=== PATIENT | female | born 1990 | race Asian ===

== ENCOUNTER 2017-07-18 15:34 | Emergency (ER) | payer OTHER ==
[2017-07-18 16:50] VITALS: BP 117/86
[2017-07-18] MEDS ORDERED: DEXAMETHASONE 10 MG/ML VIAL PO STA (17:11)
--- NOTE | 2017-07-18 17:12 | ED Physician Documentation ---
History of Present Illness - Stated complaint Stated Complaint: FEMALE - Chief complaint Chief Complaint: General - History obtained from History obtained from: Patient - History of Present Illness Timing: How many weeks ago (2) - Additonal information Additional information: 26-year-old female has been feeling body aches she is also has some pelvic cramping and she is also developed a cough and congestion feels feverish and she is concerned about the possibility of retained tampon. She does not have a foul smell and does not have discharge. Review of Systems Constitutional: reports: Chills, Myalgias Eyes: denies: Decreased vision Ears: denies: Ear pain Nose: reports: Rhinorrhea / runny nose, Congestion Throat: reports: Sore throat Cardiac: denies: Chest pain / pressure, Palpitations Respiratory: reports: Cough. denies: Dyspnea GI: denies: Nausea, Vomiting : denies: Dysuria, Frequency PD PAST MEDICAL HISTORY - Present Medications Home Medications: Ambulatory Orders Medication Instructions Recorded Confirmed Azithromycin [Zithromax] 250 mg PO DAILY #6 tablet 07/18/17 - Allergies Allergies/Adverse Reactions: Allergies Allergy/AdvReac Type Severity Reaction Status Date / Time No Known Drug Allergies Allergy Verified 07/18/17 15:40 PD ED PE NORMAL - Vitals Vital signs reviewed: Yes (Normal) - General General: Alert and oriented X 3, No acute distress, Well developed/nourished - HEENT HEENT: Atraumatic, PERRL, EOMI, Other (There is marked inflammation of the right TM the left is clear the pharynx is with 2+ tonsils with exudate) - Neck Neck: Supple, no meningeal sign, No bony TTP - Cardiac Cardiac: RRR, No murmur - Respiratory Respiratory: No respiratory distress, Clear bilaterally - Abdomen Abdomen: Soft, Non tender - Female Female : Lease Administrator present (Lola), Other (There is no evidence of retained tampon. The vaginal vault is with milky white discharge that is thin and nonodorous. There is no cervicitis present) - Back Back: No CVA TTP, No spinal TTP - Derm Derm: Normal color, Warm and dry, No rash - Extremities Extremities: No deformity, No edema - Neuro Neuro: Alert and oriented X 3, No motor deficit, No sensory deficit, Normal speech Eye Opening: Spontaneous Motor: Obeys Commands Verbal: Oriented GCS Score: 15 - Psych Psych: Normal mood, Normal affect Results - Vitals Vitals: Vital Signs - 24 hr 07/18/17 07/18/17 15:36 16:49 Temperature 37.4 C Heart Rate 83 68 Respiratory 18 16 Rate Blood Pressure 122/79 117/86 H O2 Saturation 96 99 Oxygen O2 Source Room air PD MEDICAL DECISION MAKING - ED course Complexity details: reviewed results, re-evaluated patient, considered differential, d/w patient ED course: 26-year-old female who is concerned about the possibility of retained tampon does not have retained tampon. She does have body aches and pains and a cough and congestion and has otitis on examination. She is treated for this with dexamethasone and we will place her on some azithromycin. Departure - Departure Disposition: 01 Home, Self Care Clinical Impression: Otitis media Qualifiers: Otitis media type: suppurative Chronicity: acute Laterality: right Recurrence: not specified as recurrent Spontaneous tympanic membrane rupture: without spontaneous rupture Qualified Code(s): H66.001 - Acute suppurative otitis media without spontaneous rupture of ear drum, right ear Condition: Stable Instructions: ED Otitis Media Acute Adult Follow-Up: [facility] [Provider Group] Prescriptions: Azithromycin [Zithromax] 250 mg PO DAILY #6 tablet
== END 2017-07-18 18:14 | disposition home or self-care (01) ==
LOC: ED 15:34
DX: H66.001 Acute suppurative otitis media without spontaneous rupture of ear drum, right ear (principal); M79.1 Myalgia; R05 Cough
CPT/HCPCS: 99283

== ENCOUNTER 2017-08-05 16:26 | Outpatient (CLI) | payer OTHER ==
[2017-08-05 17:18] LABS: THYROID STIMULATING HORMONE 3.15 uIU/mL (0.34-5.60)
[2017-08-05 17:20] LABS: FREE T4 (FREE THYROXINE) 0.76 ng/dL (0.58-1.64)
== END 2017-08-05 16:27 | disposition home or self-care (01) ==
LOC: LAB 16:26
PROVIDERS: ATTEND Nurse Practitioner Obstetrics & Gynecology
DX: Z13.29 Encounter for screening for other suspected endocrine disorder (principal)
CPT/HCPCS: 36415; 84439; 84443; 84481

== ENCOUNTER 2018-09-28 10:19 | Emergency (ER) | payer OTHER ==
[2018-09-28] MEDS ORDERED: KETOROLAC 60 MG/2 ML VIAL IM STA (12:24)
--- NOTE | 2018-09-28 12:27 | ED Physician Documentation ---
PD HPI BACK PAIN - Stated complaint Stated Complaint: BACK PX - Chief complaint Chief Complaint: Back Pain - History obtained from History obtained from: Patient - History of Present Illness Timing - onset: Yesterday Timing - duration: Days (2) Timing - details: Abrupt onset, Gradual onset Pain level max: 8 Pain level now: 8 Location: Lower, Right, Left Quality: Pain, Spasm, Similar to prior episodes Associated symptoms: No: Fever, Weakness, Numbness, Incontinent of urine, Unable to urinate, Hematuria, Incontinent of stool Improves with: Rest Worsened by: Movement Contributing factors: Twisting (twisting when doing her hair) Similar symptoms before: Diagnosis (has had back problems in the past) Recently seen: Not recently seen Review of Systems Constitutional: denies: Fever, Chills Cardiac: denies: Chest pain / pressure Respiratory: denies: Cough GI: denies: Abdominal Pain, Nausea, Vomiting, Diarrhea : denies: Dysuria, Frequency, Hesitancy, Unable to Void, Incontinent, Now EGA Skin: denies: Rash Musculoskeletal: denies: Neck pain Neurologic: denies: Headache PD PAST MEDICAL HISTORY - Past Medical History Past Medical History: No - Past Surgical History Past Surgical History: No - Present Medications Home Medications: Ambulatory Orders Medication Instructions Recorded Confirmed Azithromycin [Zithromax] 250 mg PO DAILY #6 tablet 07/18/17 Cyclobenzaprine [Flexeril] 10 mg PO TID PRN #20 tablet 09/28/18 Meloxicam [Mobic] 15 mg PO DAILY PRN #20 tablet 09/28/18 - Allergies Allergies/Adverse Reactions: Allergies Allergy/AdvReac Type Severity Reaction Status Date / Time No Known Drug Allergies Allergy Verified 09/28/18 10:36 - Living Situation Living Arrangement: reports: At home - Family History Family history: reports: Non contributory PD ED PE NORMAL - Vitals Vital signs reviewed: Yes - General General: Alert and oriented X 3, No acute distress, Well developed/nourished - HEENT HEENT: PERRL, Moist mucous membranes - Neck Neck: Supple, no meningeal sign - Cardiac Cardiac: RRR, Strong equal pulses - Respiratory Respiratory: No respiratory distress, Clear bilaterally - Abdomen Abdomen: Soft, Non tender, Non distended - Back Back: No spinal TTP, Other (paraspinal spasm B low lumbar) - Derm Derm: Warm and dry - Extremities Extremities: Normal ROM s pain - Neuro Neuro: Alert and oriented X 3, No motor deficit, No sensory deficit, Other (Normal bilateral lower extremity patellar and ankle jerk reflexes. Normal great toe extension bilaterally. no saddle anesthesia) - Psych Psych: Normal mood, Normal affect Results - Vitals Vitals: Vital Signs - 24 hr 09/28/18 09/28/18 10:33 12:51 Temperature 36.5 C Heart Rate 66 79 Respiratory 14 18 Rate Blood Pressure 126/69 127/78 O2 Saturation 100 97 Oxygen O2 Source Room air - Labs Labs: Laboratory Tests 09/28/18 09/28/18 10:48 12:23 Urine Color Cancelled Urine Clarity Cancelled Urine pH Cancelled Ur Specific [place] Cancelled 1.010 Urine Protein Cancelled Urine Glucose (UA) Cancelled Urine Ketones Cancelled Urine Occult Blood Cancelled Urine Nitrite Cancelled Urine Bilirubin Cancelled Urine Urobilinogen Cancelled Ur Leukocyte Esterase Cancelled Urine RBC Cancelled Urine WBC Cancelled Urine WBC Clumps Cancelled Ur Epithelial Cells Cancelled Ur Squamous Epith Cells Cancelled Urine Crystals Cancelled Amorphous Sediment Cancelled Urine Bacteria Cancelled Urine Casts Cancelled Urine Starch Cancelled Urine Mucus Cancelled Urine Trichomonas Cancelled Urine Yeast Cancelled Urine Sperm Cancelled Ur Oval Fat Bodies Cancelled Ur Microscopic Review Cancelled Urine Culture Comments Cancelled Urine HCG, Qual Cancelled NEGATIVE PD MEDICAL DECISION MAKING - ED course Complexity details: reviewed results, re-evaluated patient, considered differential (No cauda equina, no spinal epidural abscess, no fracture, no aortic dissection or evidence of aneursym rupture), d/w patient ED course: Patient with a low back strain with spasm. Will place on muscle relaxants and meloxicam for home. Ambulating well. No neurological deficits. No cauda equina or epidural abscess. Patient counseled regarding signs and symptoms for which I believe and urgent re-evaluation would be necessary. Patient with good understanding of and agreement to plan and is comfortable going home at this time This document was made in part using voice recognition software. While efforts are made to proofread this document, sound alike and grammatical errors may occur. Departure - Departure Disposition: 01 Home, Self Care Clinical Impression: Low back strain Qualifiers: Encounter type: initial encounter Qualified Code(s): S39.012A - Strain of muscle, fascia and tendon of lower back, initial encounter Condition: Good Instructions: ED Sprain Strain Lumbar Follow-Up: Yaima Sharpe PA-C [Primary Care Provider] - Within 1 week Prescriptions: Cyclobenzaprine [Flexeril] 10 mg PO TID PRN #20 tablet PRN Reason: Spasms Meloxicam [Mobic] 15 mg PO DAILY PRN #20 tablet PRN Reason: pain Comments: Return if you worsen. Use the medications as needed for your back. do not drive or operate heavy machinery while on flexeril. Forms: Activity restrictions Discharge Date/Time: 09/28/18 12:51
[2018-09-28 12:32] LABS: HCG UR QUAL NEGATIVE
[2018-09-28 12:52] VITALS: BP 127/78
== END 2018-09-28 12:51 | disposition home or self-care (01) ==
LOC: ED 10:19
DX: S39.012A Strain of muscle, fascia and tendon of lower back, initial encounter (principal); X50.1XXA Overexertion from prolonged static or awkward postures, initial encounter; Y93.E8 Activity, other personal hygiene; M62.830 Muscle spasm of back
CPT/HCPCS: 81001; 81003; 81025; 87086; 96372; 99283

== ENCOUNTER 2019-05-19 14:24 | Outpatient (CLI) | payer OTHER ==
--- NOTE | 2019-05-20 04:05 | XRAY Report ---
Reason: SPRAIN OF LUMBAR SPINE Procedure Date: 05/19/2019 Accession Number: [id number] / [id number] Procedure: WCP - Lumbar Spine 2 View CPT Code: Final Report FULL RESULT: EXAM: LUMBOSACRAL SPINE RADIOGRAPHY EXAM DATE: 05/19/2019 02:24 PM. CLINICAL HISTORY: Fall, back pain COMPARISONS: None. TECHNIQUE: 2 views. FINDINGS: Alignment: Normal. No spondylolisthesis or scoliosis. Bones: Five [id number] lumbar vertebral bodies are present. No fractures or bone lesions. Disks: Mild L1-L2 disk height loss and a slight ptosis. No other significant disk level degenerative changes. Facets: No degenerative changes. Sacroiliac Joints: Unremarkable. Soft Tissues: Normal. The visualized bowel gas pattern is normal. IMPRESSION: Negative lumbar spine radiography. RADIA
== END 2019-05-19 23:59 | disposition home or self-care (01) ==
LOC: DI.WCP 14:24
PROVIDERS: ATTEND Family Medicine
DX: S33.5XXA Sprain of ligaments of lumbar spine, initial encounter (principal)
CPT/HCPCS: 72100

== ENCOUNTER 2020-05-26 08:00 | Outpatient (CLI) | payer OTHER ==
[2020-05-26 10:09] LABS: CHOL/HDL RATIO 4.6 (<4.4); CHOLESTEROL 214 mg/dL; HDL CHOLESTEROL 47 mg/dL; LDL CHOLESTEROL,CALCULATED 145 mg/dL; LDL/HDL RATIO 3.1 (<4.4); VLDL CHOLESTEROL 22 mg/dL
== END 2020-05-26 23:59 | disposition home or self-care (01) ==
LOC: LAB 08:00
PROVIDERS: ATTEND Advanced Practice Midwife
DX: Z00.00 Encounter for general adult medical examination without abnormal findings (principal)
CPT/HCPCS: 36415; 80061; 83721

== ENCOUNTER 2020-05-29 14:03 | Outpatient (CLI) | payer OTHER ==
--- NOTE | 2020-05-30 09:46 | Ultrasound Report ---
LIMITED ULTRASOUND OF RIGHT BREAST: 05/29/2020 CLINICAL: Palpable right breast lump. No prior exams were available for comparison. Real-time ultrasound of the right breast lower inner quadrant was performed on the area of interest. No discrete cystic or solid mass lesion identified in the area of palpable abnormality. IMPRESSION: NEGATIVE There is no sonographic evidence of malignancy. There is no abnormality seen in the right breast to correspond with the palpable abnormality in the l ower inner quadrant, however, clinical followup is recommended. This exam was interpreted at Station ID: [id number]. Electronically Signed By: Orlando Guillory M.D. ddp/:05/29/2020 15:15:48 Ultrasound BI-RADS: 1 Negative BI-RADS CATEGORY: (1) - 1 Unspecified - other recall n/a LATERALITY: (B)
== END 2020-05-29 14:04 | disposition home or self-care (01) ==
LOC: DI 14:03
PROVIDERS: ATTEND Advanced Practice Midwife
DX: N63.10 Unspecified lump in the right breast, unspecified quadrant (principal); Z80.3 Family history of malignant neoplasm of breast

== ENCOUNTER 2020-09-24 22:56 | Emergency (ER) | payer OTHER ==
[2020-09-24 23:19] LABS: BILIRUBIN,URINE NEGATIVE (NEGATIVE); GLUCOSE, URINE (UA) NEGATIVE (NEGATIVE); KETONES,URINE (UA) NEGATIVE (NEGATIVE); LEUKOCYTE ESTERASE, URINE NEGATIVE (NEGATIVE); NITRITE,URINE NEGATIVE (NEGATIVE); OCCULT BLOOD,URINE NEGATIVE (NEGATIVE); PH,URINE 6.5 PH (5.0-7.5); PROTEIN,URINE NEGATIVE (NEGATIVE); UROBILINOGEN,URINE 0.2 (NORMAL) E.U./dL (NORMAL)
[2020-09-24 23:20] LABS: CLARITY,URINE CLEAR (CLEAR)
[2020-09-24 23:25] LABS: HCG UR QUAL NEGATIVE
[2020-09-24 23:33] LABS: BASOPHILS # (AUTO) 0.1 10^3/uL (0.0-0.1); BASOPHILS % (AUTO) 0.7 %; EOSINOPHILS # (AUTO) 0.2 10^3/uL (0.0-0.7); EOSINOPHILS % (AUTO) 1.8 %; HCT - HEMATOCRIT 41.1 % (37.0-47.0); LYMPHOCYTES # (AUTO) 3.2 10^3/uL (1.5-3.5); MEAN CORPUSCULAR HEMOGLOBIN 31.3 pg (27.0-31.0); MEAN CORPUSCULAR HGB CONC 34.1 g/dL (32.0-36.0); MEAN CORPUSCULAR VOLUME 91.9 fL (81.0-99.0); MEAN PLATELET VOLUME 10.3 fL (7.9-10.8); MONOCYTES # (AUTO) 0.7 10^3/uL (0.0-1.0); MONOCYTES % (AUTO) 6.9 %; NEUTROPHILS # (AUTO) 6.4 10^3/uL (1.5-6.6); NEUTROPHILS % (AUTO) 60.5 %; PLT - PLATELET COUNT 278 10^3/uL (130-450); RED BLOOD COUNT 4.47 10^6/uL (4.20-5.40); RED CELL DISTRIBUTION WIDTH 12.3 % (12.0-15.0); WHITE BLOOD COUNT 10.5 x10^3/uL (4.8-10.8)
[2020-09-24 23:47] LABS: ALBUMIN 4.6 g/dL (3.2-5.5); ALBUMIN/GLOBULIN RATIO 1.4 (1.0-2.2); BILIRUBIN,TOTAL 0.4 mg/dL (0.2-1.0); CREATININE 0.7 mg/dL (0.4-1.0); POTASSIUM 3.4 mmol/L (3.5-5.0); TOTAL PROTEIN 7.8 g/dL (6.7-8.2)
[2020-09-25] MEDS ORDERED: SODIUM CHLORIDE 0.9% 1,000 ML IV STA (00:52)
[2020-09-25] MEDS ORDERED: DEXAMETHASONE 10 MG/ML VIAL IVP STA (00:52)
--- NOTE | 2020-09-25 00:55 | ED Physician Documentation ---
PD HPI NVD - Stated complaint Stated Complaint: NAUSEA, VOMIT, SHAKES - Chief complaint Chief Complaint: Neuro - History obtained from History obtained from: Patient - History of Present Illness Timing - onset: How many weeks ago (1) Timing - duration: Weeks (1) Timing - details: Gradual onset, Still present Associated symptoms: Other (pain on the right side of the face/jaw and bad taste from the right upper nose.) Contributing factors: Other (allergies are worse now) Improved by: Vomiting Similar symptoms before: Diagnosis (OM and tonsillitis) Recently seen: Not recently seen - Additonal information Additional information: 30-year-old female who works at [employer] has not felt right for the past week and she has been fatigued has swelling in the lymph glands on the r ight side of her head jaw. She reports that her allergies are worse than usual and she has not had cough associated with this she has noted a foul taste from drainage from the right side of her nasopharynx. Tonight she went to go to bed and felt that when she lay down her heart started to race she has developed a bit of a headache and she has some chills. PD PAST MEDICAL HISTORY - Past Medical History Past Medical History: Yes Other Past Medical History: Back injury/Sprain/Strain - Past Surgical History Past Surgical History: No - Present Medications Home Medications: Ambulatory Orders Medication Instructions Recorded Confirmed Azithromycin [Zithromax] 250 mg PO DAILY #6 tablet 07/18/17 Cyclobenzaprine [Flexeril] 10 mg PO TID PRN #20 tablet 09/28/18 Meloxicam [Mobic] 15 mg PO DAILY PRN #20 tablet 09/28/18 Amox/Clav 875/125 [Augmentin] 1 each PO Q12H #20 tablet 09/25/20 - Allergies Allergies/Adverse Reactions: Allergies Allergy/AdvReac Type Severity Reaction Status Date / Time No Known Drug Allergies Allergy Verified 09/24/20 23:03 - Social History Does the pt smoke?: No Smoking Status: Never smoker Does the pt drink ETOH?: Yes Does the pt have substance abuse?: No - Immunizations Immunizations are current?: No Immunizations: TDAP >10years/unknown - POLST Patient has POLST: No PD ED PE NORMAL - Vitals Vital signs reviewed: Yes (hypertensive ) - General General: Alert and oriented X 3, No acute distress, Well developed/nourished - HEENT HEENT: Atraumatic, PERRL, EOMI, Other (right TM is inflamed with distortion of the landmarks. 1+ swelling with crypts to the tonsils with minimal exudate. ) - Neck Neck: Supple, no meningeal sign, No bony TTP - Cardiac Cardiac: No murmur, Other (tachy to 110) - Respiratory Respiratory: No respiratory distress, Clear bilaterally - Abdomen Abdomen: Soft, Non tender - Back Back: No CVA TTP, No spinal TTP - Derm Derm: Normal color, Warm and dry, No rash - Extremities Extremities: No deformity, No edema Results - Vitals Vitals: Vital Signs - 24 hr 09/24/20 23:03 Temperature 36.6 C Heart Rate 75 Respiratory 16 Rate Blood Pressure 150/90 H O2 Saturation 99 Oxygen O2 Source Room air - Labs Labs: Laboratory Tests 09/24/20 09/24/20 09/24/20 23:13 23:27 23:27 WBC 10.5 RBC 4.47 Hgb 14.0 Hct 41.1 MCV 91.9 MCH 31.3 H MCHC 34.1 RDW 12.3 Plt Count 278 MPV 10.3 Neut # (Auto) 6.4 Lymph # (Auto) 3.2 Todd # (Auto) 0.7 Eos # (Auto) 0.2 Baso # (Auto) 0.1 Absolute Nucleated RBC 0.00 Nucleated RBC % 0.0 Sodium 135 Potassium 3.4 L Chloride 104 Carbon Dioxide 22 Anion Gap 9.0 BUN 11 Creatinine 0.7 Estimated GFR (MDRD) 99 Glucose 114 H Calcium 9.0 Total Bilirubin 0.4 AST 23 ALT 21 Alkaline Phosphatase 62 Total Protein 7.8 Albumin 4.6 Globulin 3.2 Albumin/Globulin Ratio 1.4 Lipase 34 Urine Color YELLOW Urine Clarity CLEAR Urine pH 6.5 Ur Specific [place] 1.020 Urine Protein NEGATIVE Urine Glucose (UA) NEGATIVE Urine Ketones NEGATIVE Urine Occult Blood NEGATIVE Urine Nitrite NEGATIVE Urine Bilirubin NEGATIVE Urine Urobilinogen 0.2 (NORMAL) Ur Leukocyte Esterase NEGATIVE Ur Microscopic Review NOT INDICATED Urine Culture Comments NOT INDICATED Urine HCG, Qual NEGATIVE PD MEDICAL DECISION MAKING - ED course Complexity details: considered differential, d/w patient, d/w family ED course: 30-year-old female who works for [employer] has become fatigued this week she has developed a cough she has developed some pain to the right side of her face and has otitis on exam. She is treated for the otitis and she is found to be dehydrated on interrogation the inferior vena cava and she is administered intravenous saline. She is given dexamethasone as well. We will place her on some Augmentin. Departure - Departure Disposition: Home, Self Care Clinical Impression: Dehydration Otitis media Qualifiers: Otitis media type: suppurative Chronicity: acute Laterality: right Recurrence: not specified as recurrent Spontaneous tympanic membrane rupture: without spontaneous rupture Qualified Code(s): H66.001 - Acute suppurative otitis media without spontaneous rupture of ear drum, right ear Condition: Stable Instructions: ED Otitis Media Acute Adult, ED Dehydration Follow-Up: [facility] [Provider Group] Prescriptions: Amox/Clav 875/125 [Augmentin] 1 each PO Q12H #20 tablet Forms: Activity restrictions
[2020-09-25] MEDS ORDERED: AMOX/CLAV 875 MG/125 MG TABLET PO STA (01:51)
[2020-09-25 01:52] VITALS: BP 107/60
== END 2020-09-25 02:12 | disposition home or self-care (01) ==
LOC: ED 22:56
DX: H66.001 Acute suppurative otitis media without spontaneous rupture of ear drum, right ear (principal); E86.0 Dehydration
CPT/HCPCS: 36415; 80053; 81003; 81025; 83690; 85025; 96361; 96374; 99283; 99284; A9270; 81001; 87086

== ENCOUNTER 2022-05-28 18:03 | Outpatient (CLI) | payer OTHER | END 2022-05-28 18:04 | disposition home or self-care (01) | LOC: LAB 18:03 | PROVIDERS: ATTEND Naturopath | DX: Z11.1 Encounter for screening for respiratory tuberculosis (principal) | CPT/HCPCS: 81599; 86480 ==